=== PATIENT | male | born 1995 | race Caucasian/White ===

== ENCOUNTER 2018-11-13 22:17 | Inpatient (IN) | payer OTHER ==
[~2018-11-13] VITALS: Ht 177.8 cm; Wt 97.7 kg
--- NOTE | 2018-11-13 22:25 | NUR ---
Patient arrived to medical unit at this time. Escorted to room 317. Accompanied by mother and father.
[2018-11-13 22:34] VITALS: BP 148/78; PULSE 119; TEMP 98.6
--- NOTE | 2018-11-13 23:00 | NUR ---
Dr. Mcdonough notified that patient has arrived. States he will be up to see the patient shortly.
[2018-11-14] VITALS (7 sets, daily range): BP systolic 114–150; BP diastolic 61–81; PULSE 86–118; TEMP 98.3–100.5
--- NOTE | 2018-11-14 05:59 | NUR ---
Patient had uneventful night. Resting in bed. Family at bedside. LR running at 100ml/hr. Denies any major pain at this time. Call light within reach.
[2018-11-14 06:02] LABS: HEMOGLOBIN 11.8 g/dl (13.5-18.0); MEAN CELL VOLUME 89 fl (80.0-100.0); MEAN CORPUSCULAR HEMOGLOBIN 30 pg (27.0-31.0); MEAN CORPUSCULAR HGB CONC 34 g/dl (33.0-37.0); PLATELET COUNT 500 K/mm3 (130-400); RED BLOOD COUNT 3.93 M/mm3 (4.20-5.60); REDCELL DISTRIBUTION WIDTH-CV 13.2 % (11.5-14.5)
[2018-11-14 06:05] LABS: HEMATOCRIT 35.1 % (42.0-52.0)
[2018-11-14 06:11] LABS: ALANINE AMINOTRANSFERASE < 6 U/L (21-72); ALBUMIN 3.6 gm/dL (3.5-5.0); ALKALINE PHOSPHATASE 84 U/L (50-136); ANION GAP 14 mmol/L (7-16); AST,SGOT 14 U/L (15-37); BILIRUBIN,TOTAL 1.1 mg/dL (0.0-1.0); BLOOD UREA NITROGEN 4 mg/dL (9-20); CALCIUM 8.5 mg/dL (8.4-10.2); CARBON DIOXIDE 20 mmol/L (22-30); CHLORIDE 101 mmol/L (98-107); CREATININE, serum 0.89 (0.66-1.25); GLUCOSE 140 mg/dL (74-106); POTASSIUM 3.8 mmol/L (3.4-5.0); SODIUM 135 mmol/L (137-145); TOTAL PROTEIN 7.1 gm/dL (6.4-8.2)
[2018-11-14 06:28] LABS: BAND 4 % (0-10); BASOPHIL 1 % (0-2); LYMPHOCYTE 16 % (20.0-51.0); NEUTROPHILS 73 % (42.0-75.2); PLATELET ESTIMATE INCREASED (NORMAL)
[2018-11-14 06:30] LABS: C-REACTIVE PROTEIN 20.8 mg/dL (0.0-0.9)
--- NOTE | 2018-11-14 07:09 | NUR ---
Report given to AIDEN Epps
[2018-11-14 07:20] LABS: ERYTHROCYTE SEDIMENTATION RATE 47 mm/hr (0-15)
--- NOTE | 2018-11-14 10:00 | NUR ---
Orders placed by Dr. Ramires for multiple blood tests one of which was the quantiferon tuberculosis. Spoke with infection control nurse inquiring about isolation and was informed that the patient was fine to not be on isolation since the testing was related to testing to determine if patient would be able to take autoimmune medication if needed based on endoscopy testing.
--- NOTE | 2018-11-14 10:34 | NUR ---
SW met with the patient and the patient's parents (Jasmyne & Colby) to discuss discharge plan. The patient lives in [place] with his parents and his sister. He reports independence with ADLs and does not have any DME. The patient receives primary care at [facility] on [address] and he receives his medications at [facility]. His mother reports no difficulties obtaining his meds. The patient plans to return back home with his family upon discharge. No additional needs at this time. Jasmyne Bean: ph#[phone] Colby Bean: ph#[phone]
--- NOTE | 2018-11-14 12:00 | NUR ---
Patient has not finished bowel prep, has only drank 1 glass. Provider and nursing staff has explained what patient needed to do and in what timeframe. Call placed to provider who said she would relay the information to Dr. Rico.
--- NOTE | 2018-11-14 15:00 | NUR ---
Dr. Rico here to see patient and family. Has explained to patient and parents how to take bowel prep and that he will have procedure done tomorrow.
[2018-11-14 15:26] LABS: HIV 1/2 Antibodies Non-Reactive; HIV-1p24 Antigen Non-Reactive
--- NOTE | 2018-11-14 18:14 | NUR ---
Patient is resting in bed, mother is at bedside. Bowel prep is available. Patient has drank only one glass so far, has been encouraged to drink more. Mother verbalizes concern with the bisacodyl tablets that have been ordered stating he will become nauseated, she would prefer if he took one at a time to see how he feels. Patient nodded his head in agreement. Has call light and personal items are within reach.
--- NOTE | 2018-11-14 20:15 | NUR ---
Shift assessment complete. Patient in bed, awake. States 5/10 pressure H/A, declines pain medication. Patient's Dad at bedside. Significant amount of bowel prep left to drink. Per patient's Dad, GI told him he would have to have the prep finished by 0800 on 11/15/18, for a EGD/colon at noon. Patient stated, last BM was yellow, with no traces of blood. ODT zofran given for nausea r/t bowel prep. Denies further needs at this time. Will continue to monitor.
[2018-11-14 23:53] LABS: HEPATITIS B CORE AB,TOTAL Negative (()); HEPATITIS B SURFACE ANTIBODY <2.0 (()); HEPATITIS B SURFACE ANTIGEN Negative (Negative)
--- NOTE | 2018-11-15 00:37 | NUR ---
Temp 100.4. Notified Dr. Mcdonough of fever. Prn tylenol ordered for temp >101.0. Will update patient and family. Will recheck temp in a few hours.
--- NOTE | 2018-11-15 04:30 | NUR ---
Patient in bed, resting. Family at bedside. Denies pain. Denies further needs at this time. Will continue to monitor.
[2018-11-15 04:32] VITALS: BP 122/63; PULSE 89; TEMP 97.7
--- NOTE | 2018-11-15 06:33 | NUR ---
Per patient's mother, IV has been bothering the patient. IV was noted to be slightly leaky d/t being in the AC. IV was a butterfly catheter, placed at [facility] on 11/12/18. IV removed, cath tip intact. Pressure applied, bandaid in place. Patient states he would like to shower before new IV is placed. Notified patient and family that it is shift change, so if he wants to shower, his new IV may have to be placed by the day shift. Patient and family agreeable to plan. Also noted that patient still has about 1/4 of his bowel prep to consume. Reminded patient that needs to be gone by 0800 (per GI). Patient agreed. Denies further needs at this time. Will continue to monitor.
[2018-11-15 06:50] LABS: BASO % 0.3 % (0.0-2.0); GRAN # 8.3 (1.4-6.5); GRAN % 82.1 % (42.2-75.2); HEMOGLOBIN 10.9 g/dl (13.5-18.0); LYMPH # 0.7 (1.2-3.4); LYMPH % 6.6 % (20.0-51.0); MEAN CELL VOLUME 88 fl (80.0-100.0); MEAN CORPUSCULAR HEMOGLOBIN 30 pg (27.0-31.0); MEAN CORPUSCULAR HGB CONC 34 g/dl (33.0-37.0); MONO % 9.6 % (1.7-9.3); RED BLOOD COUNT 3.64 M/mm3 (4.20-5.60); REDCELL DISTRIBUTION WIDTH-CV 13.2 % (11.5-14.5)
[2018-11-15 06:52] LABS: HEMATOCRIT 32.1 % (42.0-52.0); PLATELET COUNT 365 K/mm3 (130-400)
[2018-11-15 07:08] LABS: CALCIUM 8.5 mg/dL (8.4-10.2); CREATININE, serum 0.64 (0.66-1.25); POTASSIUM 3.7 mmol/L (3.4-5.0)
[2018-11-15 07:58] LABS: C-REACTIVE PROTEIN 21.2 mg/dL (0.0-0.9)
[2018-11-15 08:05] VITALS: BP 131/83; PULSE 94; TEMP 98.1
--- NOTE | 2018-11-15 08:43 | NUR ---
PT UP AND SHOWERING. NEW IV PLACED RH. PLAN FOR EGD/COLONOSCOPY AT NOON. PREPROCEDURE PREP COMPLETED AT 8AM PER SCHEDULE. CONSENT TO BE SIGNED. PARENTS IN ROOM. MOTHER ANSWERS FOR PT DESPITE EFFORTS TO HAVE THE PT COMMUNICATE WITH STAFF.
--- NOTE | 2018-11-15 08:58 | NUR ---
PT SIGNED INFORMED CONSENT FOR EGD/COLONOSCOPY AT 0855.
--- NOTE | 2018-11-15 09:37 | NUR ---
Initial visit; Patient thanked Director Of Planning for looking in on him and offering him god's blessings.
--- NOTE | 2018-11-15 12:47 | NUR ---
Received call from Dr. Santa post procedure. Pt will return to room as inpatient observation. Pt may return to regular diet as tolerated. Medications will move from IV to oral as tolerated. Communicated with jose Mcqueen about medications and he is putting the orders in.
[2018-11-15 13:00] VITALS: BP 122/64; PULSE 84; TEMP 97.8
[2018-11-15 13:20] VITALS: BP 139/71; PULSE 82; TEMP 97.8
[2018-11-15 13:42] VITALS: BP 138/68; PULSE 83; TEMP 97.9
[2018-11-15 13:44] VITALS: BP 112/69; PULSE 87
[2018-11-15] MEDS ORDERED: LIALDA 1.2 GM1.2 GM PO (14:24)
[2018-11-15] MEDS ORDERED: PREDNISONE10 MG PO (14:25)
[2018-11-15] MEDS ORDERED: VITAMIN C500 MG PO (14:34)
[2018-11-15] MEDS ORDERED: FERROUS SU325 MG/TAB PO (14:34)
--- NOTE | 2018-11-15 16:25 | NUR ---
Pt ordered food, and stated no issues with eating. Reported back to [facility] planned for this afternoon. Pt has no questions or concerns at this time.
[2018-11-16 01:31] LABS: HEPATITIS AB (HAV) IGG INDEX 1.09 Index (<=1.00)
== END 2018-11-15 17:56 | disposition home or self-care (01) | DRG 387 ==
LOC: MEDICAL 22:17
PROVIDERS: Internal Medicine Gastroenterology; Physician Assistant
PROC: 0DBL8ZX Excision of Transverse Colon, Via Natural or Artificial Opening Endoscopic, Diagnostic (ICD-10-PCS; 2018-11-15)
PROC: 0DBN8ZX Excision of Sigmoid Colon, Via Natural or Artificial Opening Endoscopic, Diagnostic (ICD-10-PCS; 2018-11-15)
PROC: 0DB98ZX Excision of Duodenum, Via Natural or Artificial Opening Endoscopic, Diagnostic (ICD-10-PCS; principal; 2018-11-15 12:00)
PROC: 0DBK8ZX Excision of Ascending Colon, Via Natural or Artificial Opening Endoscopic, Diagnostic (ICD-10-PCS; 2018-11-15 12:00)
DX: K51.90 Ulcerative colitis, unspecified, without complications (principal); R51 Headache; E86.9 Volume depletion, unspecified; D64.9 Anemia, unspecified; Z56.0 Unemployment, unspecified
CPT/HCPCS: 99239; G0378; G0379; J2704; J2920; J3010; J7030; J7120; J7512

== ENCOUNTER → 2018-12-19 | Outpatient (CLI) | payer OTHER ==
[~2018-12-19] MED LIST: FERROUS SU325 MG/TAB PO; LIALDA 1.2 GM1.2 GM PO; PREDNISONE10 MG PO; VITAMIN C500 MG PO
== END ==
LOC: COL.RAD 11:59
DX: K51.90 Ulcerative colitis, unspecified, without complications (principal); K92.1 Melena; R19.7 Diarrhea, unspecified; K62.5 Hemorrhage of anus and rectum
CPT/HCPCS: A9585

== ENCOUNTER 2019-07-14 18:16 | Inpatient (IN) | payer OTHER ==
[~2019-07-14] VITALS: Ht 180.3 cm; Wt 92.3 kg
[2019-07-15 04:53] VITALS: BP 137/77; PULSE 111; TEMP 99.1
[2019-07-15 06:51] LABS: HEMOGLOBIN 11.3 g/dl (13.5-18.0); MEAN CELL VOLUME 89 fl (80.0-100.0); MEAN CORPUSCULAR HEMOGLOBIN 30 pg (27.0-31.0); MEAN CORPUSCULAR HGB CONC 34 g/dl (33.0-37.0); MEAN PLATELET VOLUME 9.5 fl (7.4-10.4); PLATELET COUNT 346 K/mm3 (130-400); RED BLOOD COUNT 3.76 M/mm3 (4.20-5.60); REDCELL DISTRIBUTION WIDTH-CV 12.5 % (11.5-14.5)
[2019-07-15 06:56] LABS: HEMATOCRIT 33.6 % (42.0-52.0)
[2019-07-15 07:02] LABS: ALBUMIN 3.2 gm/dL (3.5-5.0); BILIRUBIN,TOTAL 0.8 mg/dL (0.0-1.0); CALCIUM 8.3 mg/dL (8.4-10.2); CREATININE, serum 0.73 (0.66-1.25); POTASSIUM 3.3 mmol/L (3.4-5.0); TOTAL PROTEIN 6.6 gm/dL (6.4-8.2)
[2019-07-15 07:14] LABS: C-REACTIVE PROTEIN 22.4 mg/dL (0.0-0.9)
[2019-07-15 07:57] LABS: ERYTHROCYTE SEDIMENTATION RATE 54 mm/hr (0-15)
[2019-07-15 08:15] LABS: BAND 45 % (0-10); LYMPHOCYTE 16 % (20.0-51.0); NEUTROPHILS 31 % (42.0-75.2); PLATELET ESTIMATE NORMAL (NORMAL)
[2019-07-15 08:52] VITALS: BP 148/87; PULSE 109; TEMP 98.6
[2019-07-15 11:05] VITALS: BP 153/91; PULSE 91; TEMP 98.5
[2019-07-15 11:32] LABS: CLOSTRIDIUM DIFF A/B NEG; CLOSTRIDIUM DIFF A/B INTERP No C.diff present
[2019-07-15 15:52] VITALS: BP 140/71; PULSE 101; TEMP 100.7; TEMP 97.7
[2019-07-15 20:22] VITALS: BP 130/72; PULSE 87; TEMP 98.3
[2019-07-16] VITALS (13 sets, daily range): BP systolic 112–146; BP diastolic 62–72; PULSE 64–90; TEMP 97.8–98.6
[2019-07-16 07:08] LABS: BASO % 0.2 % (0.0-2.0); GRAN # 14.9 (1.4-6.5); GRAN % 89.7 % (42.2-75.2); HEMOGLOBIN 11.6 g/dl (13.5-18.0); LYMPH % 5.9 % (20.0-51.0); MEAN CELL VOLUME 91 fl (80.0-100.0); MEAN CORPUSCULAR HEMOGLOBIN 30 pg (27.0-31.0); MEAN CORPUSCULAR HGB CONC 33 g/dl (33.0-37.0); MEAN PLATELET VOLUME 9.7 fl (7.4-10.4); MONO # 0.6 (0.1-0.6); MONO % 3.4 % (1.7-9.3); PLATELET COUNT 434 K/mm3 (130-400); RED BLOOD COUNT 3.82 M/mm3 (4.20-5.60)
[2019-07-16 07:24] LABS: ALBUMIN 3.3 gm/dL (3.5-5.0); BILIRUBIN,TOTAL 0.5 mg/dL (0.0-1.0); CALCIUM 8.6 mg/dL (8.4-10.2); CREATININE, serum 0.61 (0.66-1.25); HEMATOCRIT 34.7 % (42.0-52.0); POTASSIUM 4.1 mmol/L (3.4-5.0); TOTAL PROTEIN 6.7 gm/dL (6.4-8.2)
[2019-07-16 07:36] LABS: C-REACTIVE PROTEIN 21.2 mg/dL (0.0-0.9)
[2019-07-16 07:50] LABS: ERYTHROCYTE SEDIMENTATION RATE 51 mm/hr (0-15)
[2019-07-17] VITALS (7 sets, daily range): BP systolic 110–141; BP diastolic 58–77; PULSE 66–93; TEMP 97.5–98.5
[2019-07-17 07:47] LABS: BASO % 0.2 % (0.0-2.0); GRAN # 15.2 (1.4-6.5); GRAN % 83.6 % (42.2-75.2); HEMOGLOBIN 11.8 g/dl (13.5-18.0); LYMPH # 1.4 (1.2-3.4); LYMPH % 7.6 % (20.0-51.0); MEAN CELL VOLUME 93 fl (80.0-100.0); MEAN CORPUSCULAR HEMOGLOBIN 30 pg (27.0-31.0); MEAN CORPUSCULAR HGB CONC 32 g/dl (33.0-37.0); MEAN PLATELET VOLUME 9.5 fl (7.4-10.4); MONO # 1.4 (0.1-0.6); MONO % 7.6 % (1.7-9.3); PLATELET COUNT 532 K/mm3 (130-400); RED BLOOD COUNT 3.96 M/mm3 (4.20-5.60); REDCELL DISTRIBUTION WIDTH-CV 13.2 % (11.5-14.5)
[2019-07-17 07:48] LABS: HEMATOCRIT 36.7 % (42.0-52.0)
[2019-07-17 08:02] LABS: ALBUMIN 3.2 gm/dL (3.5-5.0); BILIRUBIN,TOTAL 0.4 mg/dL (0.0-1.0); C-REACTIVE PROTEIN 7.5 mg/dL (0.0-0.9); CALCIUM 8.6 mg/dL (8.4-10.2); CREATININE, serum 0.63 (0.66-1.25); POTASSIUM 4.2 mmol/L (3.4-5.0); TOTAL PROTEIN 6.6 gm/dL (6.4-8.2)
[2019-07-17 09:30] LABS: ERYTHROCYTE SEDIMENTATION RATE 32 mm/hr (0-15)
[2019-07-18 03:06] VITALS: BP 112/64; PULSE 67; TEMP 97.8
[2019-07-18 07:12] LABS: HEMOGLOBIN 11.3 g/dl (13.5-18.0); MEAN CELL VOLUME 93 fl (80.0-100.0); MEAN CORPUSCULAR HEMOGLOBIN 29 pg (27.0-31.0); MEAN CORPUSCULAR HGB CONC 32 g/dl (33.0-37.0); MEAN PLATELET VOLUME 9.4 fl (7.4-10.4); PLATELET COUNT 496 K/mm3 (130-400); RED BLOOD COUNT 3.85 M/mm3 (4.20-5.60); REDCELL DISTRIBUTION WIDTH-CV 13.2 % (11.5-14.5)
[2019-07-18 07:20] LABS: HEMATOCRIT 35.6 % (42.0-52.0)
[2019-07-18 07:39] LABS: C-REACTIVE PROTEIN 6.1 mg/dL (0.0-0.9); CALCIUM 8.8 mg/dL (8.4-10.2); CREATININE, serum 0.69 (0.66-1.25)
[2019-07-18 07:50] LABS: ERYTHROCYTE SEDIMENTATION RATE 38 mm/hr (0-15)
[2019-07-18 07:57] VITALS: BP 135/67; PULSE 81; TEMP 97.1
[2019-07-18 07:59] LABS: BAND 48 % (0-10); EOSINOPHIL 1 % (0-4); LYMPHOCYTE 11 % (20.0-51.0); NEUTROPHILS 32 % (42.0-75.2); PLATELET ESTIMATE INCREASED (NORMAL)
[2019-07-18 08:01] LABS: ANISOCYTOSIS 1+; HYPOCHROMIA 1+
[2019-07-18 12:17] VITALS: BP 110/67; PULSE 64; TEMP 97.6
[2019-07-18 16:00] VITALS: BP 133/71; PULSE 75; TEMP 97.5
[2019-07-18 19:35] VITALS: BP 115/62; PULSE 76; TEMP 98.5
[2019-07-18 23:48] VITALS: BP 118/63; PULSE 70; TEMP 97.9
[2019-07-19 03:50] VITALS: BP 111/67; PULSE 65; TEMP 97.6
[2019-07-19 07:13] VITALS: BP 119/76; PULSE 69; TEMP 97.8
[2019-07-19 07:19] LABS: HEMOGLOBIN 11.1 g/dl (13.5-18.0); MEAN CELL VOLUME 93 fl (80.0-100.0); MEAN CORPUSCULAR HEMOGLOBIN 30 pg (27.0-31.0); MEAN CORPUSCULAR HGB CONC 33 g/dl (33.0-37.0); MEAN PLATELET VOLUME 9.5 fl (7.4-10.4); PLATELET COUNT 462 K/mm3 (130-400); RED BLOOD COUNT 3.65 M/mm3 (4.20-5.60); REDCELL DISTRIBUTION WIDTH-CV 13.1 % (11.5-14.5)
[2019-07-19 07:26] LABS: HEMATOCRIT 34.1 % (42.0-52.0)
[2019-07-19 07:42] LABS: CALCIUM 8.5 mg/dL (8.4-10.2); CREATININE, serum 0.66 (0.66-1.25); MAGNESIUM 2.4 mg/dL (1.6-2.3)
[2019-07-19 08:48] LABS: BAND 11 % (0-10); LYMPHOCYTE 6 % (20.0-51.0); NEUTROPHILS 80 % (42.0-75.2); PLATELET ESTIMATE INCREASED (NORMAL)
[2019-07-19 11:29] VITALS: BP 120/70; PULSE 70; TEMP 98
[2019-07-19] MEDS ORDERED: PREDNISONE10 MG PO (13:15)
[2019-07-19] MEDS ORDERED: FLAGYL 250250 MG/TAB PO (13:16)
[2019-07-19] MEDS ORDERED: CIPRO 500MG TA500 MG PO (13:16)
[2019-07-19] MEDS ORDERED: VITAMIN D31000 I1 PO ×2 (13:20)
[2019-07-22 10:29] LABS: OVA AND PARASITE XXX
[2019-07-22 10:30] LABS: TRICHROME STAIN XXX
== END 2019-07-19 13:50 | disposition home or self-care (01) | DRG 386 ==
LOC: SURG 18:16
PROVIDERS: Internal Medicine Gastroenterology; Nurse Practitioner Family; Physician Assistant; ADMIT Hospitalist
PROC: 0DBN8ZX Excision of Sigmoid Colon, Via Natural or Artificial Opening Endoscopic, Diagnostic (ICD-10-PCS; 2019-07-16)
PROC: 0DB98ZX Excision of Duodenum, Via Natural or Artificial Opening Endoscopic, Diagnostic (ICD-10-PCS; principal; 2019-07-16 08:15)
PROC: 0DB68ZX Excision of Stomach, Via Natural or Artificial Opening Endoscopic, Diagnostic (ICD-10-PCS; 2019-07-16 08:15)
DX: K51.813 Other ulcerative colitis with fistula (principal); E87.1 Hypo-osmolality and hyponatremia; K22.10 Ulcer of esophagus without bleeding; E55.9 Vitamin D deficiency, unspecified; E87.6 Hypokalemia; D64.9 Anemia, unspecified; K63.9 Disease of intestine, unspecified; K29.80 Duodenitis without bleeding; K29.60 Other gastritis without bleeding; K51.00 Ulcerative (chronic) pancolitis without complications; Z56.0 Unemployment, unspecified
CPT/HCPCS: 99222-AI; 99231-AI; 99232-AI; 99239; A9585; J1650; J2405; J2704; J2920; J3010; J3480; J7030; Q9967

== ENCOUNTER 2022-04-25 06:03 | Day surgery (SDC) | payer BC ==
[~2022-04-25] VITALS: Ht 180.3 cm; Wt 76.5 kg
[~2022-04-25 06:03] MED LIST changes: +CIPRO 500MG TA500 MG PO; +FLAGYL 250250 MG/TAB PO; +VITAMIN D31000 I1 PO
[2022-04-25 06:27] VITALS: BP 134/83; PULSE 105; TEMP 98.6
[2022-04-25 07:30] VITALS: BP 109/72; PULSE 87; TEMP 98.6
[2022-04-25 07:45] VITALS: BP 110/72; PULSE 79
--- NOTE | 2022-04-25 07:45 | NUR ---
0745 THIS NURSE TOOK REPORT FROM AIDEN FIGUEROA AND PRESUMED CARE FOR PATIENT. 0756 DOCTOR IN TO SPEAK WITH PATIENT. 0815 DISCONTINUED IV FROM RIGHT HAND WITH NO DIFFICULTIES. 0816 PATIENT DRESSES SELF. 0820 REVIEWED DISCHARGE INSTRUCTIONS WITH PATIENT AND PATIENT PARENTS. BOTH VERBALIZED UNDERSTANDING WITH NO FURTHER QUESTIONS OR CONCERNS. 0825 PATIENT DISCHARGES FROM UNIT VIA WHEELCHAIR.
== END 2022-04-25 08:25 | disposition home or self-care (01) ==
LOC: SDCO 06:03
DX: K51.90 Ulcerative colitis, unspecified, without complications (principal); K62.4 Stenosis of anus and rectum; K61.0 Anal abscess; D72.829 Elevated white blood cell count, unspecified; D75.839 Thrombocytosis, unspecified; R79.82 Elevated C-reactive protein (CRP)
CPT/HCPCS: J2704; J7120

== ENCOUNTER → 2022-05-09 | Outpatient (CLI) | payer BC | LOC: COL.RAD 12:52 | DX: K51.919 Ulcerative colitis, unspecified with unspecified complications (principal) | CPT/HCPCS: Q9967 ==